=== PATIENT | female | born 1985 | race Caucasian/White ===

== ENCOUNTER 2017-06-19 21:10 | Emergency (ER) | payer MEDICAID ==
[2017-06-19 21:33] VITALS: BP 153/89
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
== END 2017-06-19 23:15 | disposition home or self-care (01) ==
LOC: JP.ED 21:10
DX: T16.1XXA Foreign body in right ear, initial encounter (principal); F43.10 Post-traumatic stress disorder, unspecified; F17.210 Nicotine dependence, cigarettes, uncomplicated; S06.0X9D Concussion with loss of consciousness of unspecified duration, subsequent encounter; H93.233 Hyperacusis, bilateral
CPT/HCPCS: 69210; 99283-25

== ENCOUNTER 2017-09-08 17:32 | Emergency (ER) | payer MEDICAID ==
[2017-09-08 17:44] VITALS: BP 126/72
--- NOTE | 2017-09-08 18:12 | EDM.PDOC ---
ED HPI GENERAL MEDICAL PROBLEM - General Chief Complaint: Lower Extremity Injury/Pain Stated Complaint: R FOOT INJURY Time Seen by Provider: 09/08/17 18:00 Source of Information: Reports: Patient, RN History Limitations: Reports: No Limitations - History of Present Illness INITIAL COMMENTS - FREE TEXT/NARRATIVE: 31 yo female fell on some stairs this morning and injured her R foot. Is barely able to bear weight on this foot. Has bruising dorsally. No other areas of pain. 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 below) (none) Right Feet Pain Score (Numeric/FACES): 4 - Related Data Allergies Allergy/AdvReac Type Severity Reaction Status Date / Time No Known Allergies Allergy Verified 06/19/17 21:48 Home Meds: Home Meds Diazepam [Valium] 2 mg PO ASDIRECTED PRN 06/19/17 [History] FLUoxetine [PROzac] 20 mg PO DAILY 06/19/17 [History] Levothyroxine 25 mcg PO DAILY 06/19/17 [History] Past Medical History Respiratory History: Reports: Asthma, Bronchitis, Recurrent 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: Reports: Musculoskeletal History: Reports: Other (See Below) Other Musculoskeletal History: C/0 R foot pain Neurological History: Reports: Concussion Psychiatric History: Reports: ADHD, Addiction, Anxiety, Panic Attack, Other ( See Below) Other Psychiatric History: addicted to alcohol and recreational drugs Endocrine/Metabolic History: Reports: Hyperthyroidism - Past Surgical History Female Surgical History: Reports: Section Social & Family History - Tobacco Use Smoking Status *Q: Current Every Day Smoker Years of Tobacco use: 10 Packs/Tins Daily: 5 - Caffeine Use Caffeine Use: Reports: Coffee - Recreational Drug Use Recreational Drug Use: No Drug Use in Last 12 Months: Yes Recreational Drug Type: Reports: Marijuana/Hashish Recreational Drug Use Frequency: Rarely Review of Systems - Review of Systems Review Of Systems: See Below Constitutional: Reports: No Symptoms Musculoskeletal: Reports: Foot Pain (right) Skin: Reports: Bruising (dorsum R foot) Neurological: Reports: No Symptoms ED EXAM, GENERAL - Physical Exam Exam: See Below Exam Limited By: No Limitations General Appearance: Alert, WD/WN, No Apparent Distress Eye Exam: Bilateral Eye: Normal Inspection Ears: Normal External Exam, Normal Canal, Hearing Grossly Normal Ear Exam: Bilateral Ear: Auricle Normal, Canal Normal Nose: Normal Inspection, Normal Mucosa, No Blood Throat/Mouth: Normal Voice, No Airway Compromise Head: Atraumatic, Normocephalic Neck: Normal Inspection Respiratory/Chest: No Respiratory Distress, No Accessory Muscle Use Cardiovascular: Regular Rate, Rhythm, No Edema Extremities: Other (R foot pain) Neurological: Alert, Oriented, CN II-XII Intact, Normal Cognition, No Motor/ Sensory Deficits Psychiatric: Normal Affect, Normal Mood Skin Exam: Warm, Dry, Intact, Ecchymosis (dorsum of the R foot) Course - Vital Signs Last Recorded V/S: Last Vital Signs Temp 36.9 C 09/08/17 17:45 Pulse 70 09/08/17 17:45 Resp 18 09/08/17 17:45 BP 126/72 09/08/17 17:45 Pulse Ox 100 09/08/17 17:43 - Orders/Labs/Meds Orders: Active Orders 24 hr Category Date Time Status Foot Comp Min 3V Rt [CR] Stat Exams 09/08/17 18:05 Ordered - Radiology Interpretation Free Text/Narrative:: R foot [id number] Departure - Departure Time of Disposition: 18:44 Disposition: Home, Self-Care 01 Condition: Good Clinical Impression: Contusion, foot Qualifiers: Encounter type: initial encounter Laterality: right Qualified Code(s): S90.31XA - Contusion of right foot, initial encounter - Discharge Information Referrals: Dane Wright MD [Primary Care Provider] - Forms: ED Department Discharge - My Orders Last 24 Hours: My Active Orders 09/08/17 18:05 Foot Comp Min 3V Rt [CR] Stat - Assessment/Plan Last 24 Hours: My Active Orders 09/08/17 18:05 Foot Comp Min 3V Rt [CR] Stat
--- NOTE | 2017-09-09 08:21 | CR ---
No definitive acute fracture. Slight irregularity at the fourth metatarsal neck which may be degenera tive. There is point tenderness this location recommend x-ray follow-up in 7-10 days.
== END 2017-09-08 18:55 | disposition home or self-care (01) ==
LOC: JP.ED 17:32
DX: S90.31XA Contusion of right foot, initial encounter (principal); F17.210 Nicotine dependence, cigarettes, uncomplicated; F41.0 Panic disorder [episodic paroxysmal anxiety]; Z79.899 Other long term (current) drug therapy; W10.8XXA Fall (on) (from) other stairs and steps, initial encounter
CPT/HCPCS: 73630-26-RT; 73630-RT; 99284

== ENCOUNTER 2017-09-22 18:19 | Emergency (ER) | payer MEDICAID ==
[2017-09-22 18:32] VITALS: BP 132/32
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
[2017-09-22] MEDS: Ketorolac 60 MG/2 ML SDV IM ONE (19:19)
== END 2017-09-22 20:48 | disposition home or self-care (01) ==
LOC: JP.ED 18:19
DX: K08.89 Other specified disorders of teeth and supporting structures (principal); F17.210 Nicotine dependence, cigarettes, uncomplicated; Z79.899 Other long term (current) drug therapy
CPT/HCPCS: 36415; 85025; 96372; 99284; J1885

== ENCOUNTER 2020-02-23 08:48 | Emergency (ER) | payer MEDICAID ==
[2020-02-23 09:24] VITALS: BP 142/93; PULSE 64
== END 2020-02-23 09:15 | disposition left against medical advice (07) ==
LOC: JP.ED 08:48
DX: Z53.21 Procedure and treatment not carried out due to patient leaving prior to being seen by health care provider (principal)

== ENCOUNTER 2020-08-30 20:57 | Emergency (ER) | payer MEDICAID ==
[2020-08-30 21:56] VITALS: BP 130/80; PULSE 124
--- NOTE | 2020-08-30 22:17 | EDM.PDOC ---
ED HPI GENERAL MEDICAL PROBLEM - General Chief Complaint: Drug or Alcohol Abuse Stated Complaint: EVAL Time Seen by Provider: 08/30/20 22:01 Source of Information: Reports: Patient History Limitations: Reports: No Limitations - History of Present Illness INITIAL COMMENTS - FREE TEXT/NARRATIVE: Caden is a 34-year-old female presenting to the ED for evaluation of episodes of tachycardia, diaphoresis, lightheadedness, and near syncope. She reports that she has these episodes about twice a year and has had them for the last 18 years. She initially thought that she was having episodes of hypoglycemia but has had her blood sugar checked checked and it was normal. The reason she is here tonight is because she reported to [facility] for her weekend incarceration but they refused to take her because she is under the influence of an unknown substance. She presents with staggering gait and some slurring of her words. She denies any drug or alcohol use. She is requesting that we check her TSH as she was supposed to have this done recently. She has had evaluation of this in the past and they have been unable to find a cause for her symptoms. She reports her last episode was over a year ago. - Related Data Allergies Allergy/AdvReac Type Severity Reaction Status Date / Time No Known Allergies Allergy Verified 08/30/20 21:56 Home Meds: Home Meds Levothyroxine 25 mcg PO DAILY 06/19/17 [History] Escitalopram [Lexapro] 20 mg PO DAILY 02/23/20 [History] atoMOXetine HCl [Atomoxetine HCl] 10 mg PO DAILY 02/23/20 [History] Diclofenac Sodium [Voltaren] 75 mg PO DAILY 08/30/20 [History] Doxepin HCl [Doxepin] 10 mg PO DAILY 08/30/20 [History] QUEtiapine [SEROquel] 25 mg PO BEDTIME 08/30/20 [History] traZODone HCl [Trazodone HCl] 50 mg PO BEDTIME 08/30/20 [History] Past Medical History HEENT History: Reports: Other (See Below) Other HEENT History: TMJ Respiratory History: Reports: Asthma, Bronchitis, Recurrent [employer] History: Reports: Musculoskeletal History: Reports: Other (See Below) Other Musculoskeletal History: C/0 R foot paintorn tendon R ankle Neurological History: Reports: Concussion Psychiatric History: Reports: ADHD, Addiction, Anxiety, Panic Attack, Other (See Below) Other Psychiatric History: addicted to alcohol and recreational drugs Endocrine/Metabolic History: Reports: Hyperthyroidism - Infectious Disease History Infectious Disease History: Reports: Novel Coronavirus - Past Surgical History Female Surgical History: Reports: Section Social & Family History - Tobacco Use Tobacco Use Status *Q: Current Every Day Tobacco User Years of Tobacco use: 20 Packs/Tins Daily: 0.2 - Caffeine Use Caffeine Use: Reports: Coffee Caffeine Use Comment: 2 pots per day - Recreational Drug Use Recreational Drug Use: No ED ROS GENERAL - Review of Systems Review Of Systems: See Below Constitutional: Reports: Diaphoresis (When she has these episodes but has not had an episode in over a year.) HEENT: Reports: Vision Change (Blurred vision only with the episodes) Respiratory: Reports: No Symptoms Cardiovascular: Reports: Palpitations (Tachycardia with episodes) Endocrine: Reports: Fatigue GI/Abdominal: Reports: No Symptoms : Reports: No Symptoms Musculoskeletal: Reports: No Symptoms Skin: Reports: No Symptoms Neurological: Reports: Syncope (Only with the episodes) Psychiatric: Reports: No Symptoms Hematologic/Lymphatic: Reports: No Symptoms Immunologic: Reports: No Symptoms ED EXAM, GENERAL - Physical Exam Exam: See Below Exam Limited By: No Limitations General Appearance: Alert, No Apparent Distress Eye Exam: Bilateral Eye: EOMI, PERRL Throat/Mouth: Normal Inspection, Normal Lips, Normal Oropharynx, No Airway Compromise, Other (Poor dentition) Head: Atraumatic, Normocephalic Neck: Normal Inspection, Supple, Non-Tender Respiratory/Chest: No Respiratory Distress, Lungs Clear, Normal Breath Sounds Cardiovascular: Normal Peripheral Pulses, Regular Rate, Rhythm, No Murmur Peripheral Pulses: 2+: Radial (L), Radial (R) GI/Abdominal: Normal Bowel Sounds, Soft, Non-Tender Back Exam: Normal Inspection, Full Range of Motion Extremities: Normal Inspection, Normal Range of Motion Neurological: Alert, Oriented, Normal Cognition, No Motor/Sensory Deficits, Other (Little slurring of the words and a little bit of ataxia with the gait) Psychiatric: Flat Affect Skin Exam: Warm, Dry Lymphatic: No Adenopathy Course - Vital Signs Last Recorded V/S: Last Vital Signs Temp 36.6 C 08/30/20 21:54 Pulse 124 H 08/30/20 21:54 Resp 16 08/30/20 21:54 BP 130/80 08/30/20 21:54 Pulse Ox 100 08/30/20 21:54 - Orders/Labs/Meds Labs: Laboratory Tests 08/30/20 08/30/20 08/30/20 Range/Units 22:02 22:12 22:15 WBC 15.0 H (4.5-11.0) K/uL RBC 4.48 (3.30-5.50) M/uL Hgb 14.1 (12.0-15.0) g/dL Hct 41.8 (36.0-48.0) % MCV 93 (80-98) fL MCH 32 H (27-31) pg MCHC 34 (32-36) % Plt Count 334 (150-400) K/uL Neut % (Auto) 79 H (36-66) % Lymph % (Auto) 11 L (24-44) % Sibley % (Auto) 7 H (2-6) % Eos % (Auto) 2 (2-4) % Baso % (Auto) 1 (0-1) % Sodium 139 L (140-148) mmol/L Potassium 3.7 (3.6-5.2) mmol/L Chloride 100 (100-108) mmol/L Carbon Dioxide 28 (21-32) mmol/L Anion Gap 14.7 H (5.0-14.0) mmol/L BUN 12 (7-18) mg/dL Creatinine 0.9 (0.6-1.0) mg/dL Est Cr Clr Drug Dosing 78.51 mL/min Estimated GFR (MDRD) > 60 (>60) Glucose 106 (74-106) mg/dL Calcium 8.9 (8.5-10.1) mg/dL Total Bilirubin 0.2 (0.2-1.0) mg/dL AST 20 (15-37) U/L ALT 32 (12-78) U/L Alkaline Phosphatase 107 (46-116) U/L Total Protein 7.4 (6.4-8.2) g/dL Albumin 3.8 (3.4-5.0) g/dL Globulin 3.6 H (2.3-3.5) g/dL Albumin/Globulin Ratio 1.1 L (1.2-2.2) TSH, Ultra Sensitive (0.358-3.740) uIU/mL Urine Opiates Screen Negative (NEGATIVE) Ur Oxycodone Screen Negative (NEGATIVE) Urine Methadone Screen Negative (NEGATIVE) Ur Propoxyphene Screen Negative (NEGATIVE) Ur Barbiturates Screen Negative (NEGATIVE) Ur Tricyclics Screen Presumptive positive H (NEGATIVE) Ur Phencyclidine Scrn Negative (NEGATIVE) Ur Amphetamine Screen Negative (NEGATIVE) U Methamphetamines Scrn Negative (NEGATIVE) Urine MDMA Screen Negative (NEGATIVE) U Benzodiazepines Scrn Negative (NEGATIVE) U Cocaine Metab Screen Negative (NEGATIVE) U Marijuana (THC) Screen Negative (NEGATIVE) Ethyl Alcohol mg/dL 08/30/20 08/30/20 Range/Units 22:15 22:15 WBC (4.5-11.0) K/uL RBC (3.30-5.50) M/uL Hgb (12.0-15.0) g/dL Hct (36.0-48.0) % MCV (80-98) fL MCH (27-31) pg MCHC (32-36) % Plt Count (150-400) K/uL Neut % (Auto) (36-66) % Lymph % (Auto) (24-44) % Sibley % (Auto) (2-6) % Eos % (Auto) (2-4) % Baso % (Auto) (0-1) % Sodium (140-148) mmol/L Potassium (3.6-5.2) mmol/L Chloride (100-108) mmol/L Carbon Dioxide (21-32) mmol/L Anion Gap (5.0-14.0) mmol/L BUN (7-18) mg/dL Creatinine (0.6-1.0) mg/dL Est Cr Clr Drug Dosing mL/min Estimated GFR (MDRD) (>60) Glucose (74-106) mg/dL Calcium (8.5-10.1) mg/dL Total Bilirubin (0.2-1.0) mg/dL AST (15-37) U/L ALT (12-78) U/L Alkaline Phosphatase (46-116) U/L Total Protein (6.4-8.2) g/dL Albumin (3.4-5.0) g/dL Globulin (2.3-3.5) g/dL Albumin/Globulin Ratio (1.2-2.2) TSH, Ultra Sensitive 5.322 H (0.358-3.740) uIU/mL Urine Opiates Screen (NEGATIVE) Ur Oxycodone Screen (NEGATIVE) Urine Methadone Screen (NEGATIVE) Ur Propoxyphene Screen (NEGATIVE) Ur Barbiturates Screen (NEGATIVE) Ur Tricyclics Screen (NEGATIVE) Ur Phencyclidine Scrn (NEGATIVE) Ur Amphetamine Screen (NEGATIVE) U Methamphetamines Scrn (NEGATIVE) Urine MDMA Screen (NEGATIVE) U Benzodiazepines Scrn (NEGATIVE) U Cocaine Metab Screen (NEGATIVE) U Marijuana (THC) Screen (NEGATIVE) Ethyl Alcohol < 3 mg/dL - Re-Assessments/Exams Free Text/Narrative Re-Assessment/Exam: 08/30/20 23:17 I reviewed the patient's labs which show a leukocytosis of 15.0 with a normal differential. This is likely demargination. The patient has no focal areas to suggest that infection at this time. She does have a significant elevation of her TSH at 5.32 suggesting that she is underdosed on her levot hyroxine at 25 mcg daily. I will encourage her to increase this to 2 tabs daily or 50 mcg. She should follow-up with her primary care provider in short order to continue managing this. Her episodes seem to be consistent with a vasovagal syncopal or near syncopal episode. There is nothing in her work-up today to suggest any other type of cause. At this time she is suitable for discharge home in satisfactory condition. Departure - Departure Time of Disposition: 23:18 Disposition: Home, Self-Care 01 Condition: Good Clinical Impression: Near syncope Hypothyroidism Qualifiers: Hypothyroidism type: unspecified Qualified Code(s): E03.9 - Hypothyroidism, unspecified - Discharge Information *PRESCRIPTION DRUG MONITORING PROGRAM REVIEWED*: Not Applicable *COPY OF PRESCRIPTION DRUG MONITORING REPORT IN PATIENT VIPIN: Not Applicable Instructions: Hypothyroidism, Near-Syncope, [id number] Referrals: Dane Wright MD [Primary Care Provider] - Forms: ED Department Discharge Care Plan Goals: I would recommend increasing your thyroxine to 50 mcg daily (2 tablets a day). You should follow-up with your primary care provider in the next week or 2 for a recheck of your TSH as you may need to have it adjusted further upward. As for your intermittent episodes, these are likely near syncopal episodes and may be related to a sudden drop in blood pressure. Certainly could be related to her thyroid but there are other causes that are more common. At this time I do not see thing that is of worrisome in your work-up. Sepsis Event Note (ED) - Evaluation Sepsis Screening Result: No Definite Risk - Focused Exam Vital Signs: Vital Signs Temp Pulse Resp BP Pulse Ox 08/30/20 21:54 36.6 C 124 H 16 130/80 100 - Problem List & Annotations (1) Hypothyroidism SNOMED Code(s): 10308544 Code(s): E03.9 - HYPOTHYROIDISM, UNSPECIFIED Status: Acute Priority: High Current Visit: Yes Qualifiers: Hypothyroidism type: unspecified Qualified Code(s): E03.9 - Hypothyroidism, unspecified (2) Near syncope SNOMED Code(s): 196435680 Code(s): R55 - SYNCOPE AND COLLAPSE Status: Acute Priority: High Current Visit: Yes - Problem List Review Problem List Initiated/Reviewed/Updated: Yes
== END 2020-08-30 23:27 | disposition home or self-care (01) ==
LOC: JP.ED 20:57
DX: R55 Syncope and collapse (principal); E03.9 Hypothyroidism, unspecified; J45.909 Unspecified asthma, uncomplicated; Z79.899 Other long term (current) drug therapy; Z72.0 Tobacco use
CPT/HCPCS: 36415; 80053; 80305-QW; 80307; 84443; 85025; 99283; 99284

== ENCOUNTER 2021-08-31 16:58 | Emergency (ER) | payer OTHER, MEDICAID ==
[2021-08-31 17:56] VITALS: BP 117/84; PULSE 99
== END 2021-08-31 19:18 | disposition home or self-care (01) ==
LOC: JP.ED 16:58
DX: B34.9 Viral infection, unspecified (principal); Z79.899 Other long term (current) drug therapy; Z72.0 Tobacco use
CPT/HCPCS: 99283

== ENCOUNTER 2022-01-19 18:42 | Emergency (ER) | payer OTHER, MEDICAID ==
[2022-01-19 19:03] VITALS: PULSE 107
[2022-01-19] MEDS ORDERED: Bacitracin Oint 1 GM U/D Packet TOP ONE (19:34)
[2022-01-19] MEDS ORDERED: Lidocaine 1% 5 ML VIAL INJECT ONE (19:34)
[2022-01-19 20:56] VITALS: BP 131/89
== END 2022-01-19 20:35 | disposition home or self-care (01) ==
LOC: JP.ED 18:42
DX: S91.311A Laceration without foreign body, right foot, initial encounter (principal); Z72.0 Tobacco use; W26.9XXA Contact with unspecified sharp object(s), initial encounter
CPT/HCPCS: 12002; 73630-26-RT; 73630-RT; 99283-25